=== PATIENT | male | born 1945 | race Caucasian/White ===

== ENCOUNTER → 2017-08-15 | Outpatient (CLI) | payer MEDICARE, OTHER ==
[~2017-08-15] MED LIST: BCOIRO PO; ERGO400 PO; FLAX PO; MELO7.5 PO; TRIHYD253B
== END ==
LOC: LAB EV 18:45
DX: M70.22 Olecranon bursitis, left elbow (principal)
CPT/HCPCS: 87070; 87075; 87077; 87147; 87186; 87205

== ENCOUNTER 2024-08-26 07:10 | Day surgery (SDC) | payer MEDICARE, OTHER ==
[~2024-08-26] VITALS: Ht 188 cm; Wt 87.1 kg
[2024-08-26] MEDS ORDERED: propofoL 50 ML IV ONE (07:31)
[2024-08-26] MEDS ORDERED: Lactated Ringer's 1,000 ML IV ONE ×2 (07:31→08:42)
[2024-08-26] MEDS ORDERED: LOSA50 (07:42)
[2024-08-26] MEDS ORDERED: FINA5 (07:42)
[2024-08-26] MEDS ORDERED: Triamcinolone A15 G2 (07:43)
[2024-08-26 09:56] VITALS: BP 133/82
== END 2024-08-26 09:50 | disposition home or self-care (01) ==
LOC: ORSCSDS 07:10
PROVIDERS: Surgery
PROC: 0DBK8ZX Excision of Ascending Colon, Via Natural or Artificial Opening Endoscopic, Diagnostic (ICD-10-PCS; principal; 2024-08-26 08:30)
DX: Z12.11 Encounter for screening for malignant neoplasm of colon (principal); Z80.0 Family history of malignant neoplasm of digestive organs; D12.2 Benign neoplasm of ascending colon; K57.30 Diverticulosis of large intestine without perforation or abscess without bleeding; I10 Essential (primary) hypertension; Z87.891 Personal history of nicotine dependence; Z79.899 Other long term (current) drug therapy
CPT/HCPCS: 88305; J2704; J7120